=== PATIENT | female | born 1965 | race Caucasian/White ===

== ENCOUNTER 2022-10-02 08:13 | Outpatient (CLI) | payer BC | END 2022-10-02 08:14 | disposition home or self-care (01) | LOC: SCSMRI 08:13 → EDBD 08:30 | PROVIDERS: ATTEND Ophthalmology | DX: D48.7 Neoplasm of uncertain behavior of other specified sites (principal); R90.89 Other abnormal findings on diagnostic imaging of central nervous system | CPT/HCPCS: 70543; 70553; 82565 ==